=== PATIENT | female | born 1970 | race Caucasian/White ===

== ENCOUNTER 2020-07-30 21:25 | Emergency (ER) | payer MEDICAID ==
[~2020-07-30] VITALS: Ht 160 cm; Wt 62.6 kg
[2020-07-30 21:28] VITALS: BP 108/66
--- NOTE | 2020-07-30 21:28 | NUR ---
TO BED AMBULATORY
[2020-07-30] MEDS ORDERED: diphenhydrAMINE 50 MG CAP PO ONE (21:35)
--- NOTE | 2020-07-30 22:10 | NUR ---
IN BED 12 WITH C/O ALLERGIC RXN WHICH STARTED AFTER EATING SHELLFISH. SKIN IS RED WITH RAISED RASH, (+) URTICARIA
[2020-07-30] MEDS ORDERED: EPINEPHrine 1:1000 - 1 MG/ML AMP IM ONE (22:20)
--- NOTE | 2020-07-30 22:20 | NUR ---
Dr. Castellanos examining patient.
[2020-07-30] MEDS ORDERED: DIPH25TA53 PO (23:02)
[2020-07-30] MEDS ORDERED: PRED20TA5 PO (23:02)
[2020-07-30] MEDS ORDERED: EPIN1KIT31 IM (23:02)
[2020-07-30 23:15] VITALS: BP 108/66
--- NOTE | 2020-07-30 23:15 | NUR ---
Patient discharged with v/s stable, redness and swelling has subsided. pt states "I feel better" Written and verbal after care instructions given and explained. Patient alert, oriented and verbalized understanding of instructions. Ambulatory with steady gait. All questions addressed prior to discharge. ID band removed. Patient advised to follow up with PMD. Rx of BENADRYL, EPIPEN, PREDNISONE given. Patient educated on indication of medication including possible reaction and side effects. Opportunity to ask questions provided and answered.
== END 2020-07-30 23:15 | disposition home or self-care (01) ==
LOC: MED 21:25
DX: T78.03XA Anaphylactic reaction due to other fish, initial encounter (principal); R21 Rash and other nonspecific skin eruption; Y93.89 Activity, other specified
CPT/HCPCS: 96372; 99283; J0171; Q0163

== ENCOUNTER 2021-07-08 14:08 | Emergency (ER) | payer SELFPAY ==
[~2021-07-08] VITALS: Ht 157.5 cm; Wt 56.7 kg
[~2021-07-08 14:08] MED LIST: DIPH25TA53 PO; EPIN1KIT31 IM; PRED20TA5 PO
[2021-07-08 14:20] VITALS: BP 127/76
[2021-07-08] MEDS ORDERED: BACITRACIN OINT 500 UNITS/GM PKT TP ONE (15:10)
[2021-07-08] MEDS ORDERED: BACI1PAC6 TP (15:17)
[2021-07-08] MEDS ORDERED: AMOX-999 PO (15:17)
--- NOTE | 2021-07-08 15:38 | NUR ---
FAXED ANIMAL BITE FORM COMPLETED TO [facility] [phone]
[2021-07-08 15:59] VITALS: BP 127/76
--- NOTE | 2021-07-08 16:39 | NUR ---
Patient discharged with v/s stable. Written and verbal after care instructions given and explained. Patient alert, oriented and verbalized understanding of instructions. Ambulatory with steady gait. All questions addressed prior to discharge. ID band removed. Patient advised to follow up with PMD. Rx of augmentin and bacitracin given. Patient educated on indication of medication including possible reaction and side effects. Opportunity to ask questions provided and answered.
== END 2021-07-08 16:39 | disposition home or self-care (01) ==
LOC: MED 14:08
DX: S61.252A Open bite of right middle finger without damage to nail, initial encounter (principal); Z79.899 Other long term (current) drug therapy; W54.0XXA Bitten by dog, initial encounter; Y93.89 Activity, other specified; Y92.89 Other specified places as the place of occurrence of the external cause; Y99.8 Other external cause status
CPT/HCPCS: 90471; 90715; 99283